=== PATIENT | female | born 1955 | race Caucasian/White ===

== ENCOUNTER 2017-10-20 14:34 | Emergency (ER) | payer BC, OTHER ==
[~2017-10-20] VITALS: Ht 154.9 cm; Wt 61.4 kg
[2017-10-20] MEDS ORDERED: HYDROCODONE/ACETAMINOPHEN 5-325 MG TABLET PO ONE (15:00)
[2017-10-20 17:00] VITALS: BP 157/103
== END 2017-10-20 17:45 | disposition home or self-care (01) ==
LOC: EMS 14:35
DX: S62.663A Nondisplaced fracture of distal phalanx of left middle finger, initial encounter for closed fracture (principal); R51 Headache; M54.2 Cervicalgia; V43.62XA Car passenger injured in collision with other type car in traffic accident, initial encounter; Y93.89 Activity, other specified; Y92.89 Other specified places as the place of occurrence of the external cause; Y99.8 Other external cause status
CPT/HCPCS: 70450; 72125; 99284